=== PATIENT | female | born 1930 | race Caucasian/White ===

== ENCOUNTER 2016-04-10 18:10 | Emergency (ER) | payer OTHER, MEDICARE ==
[~2016-04-10] VITALS: Ht 147.3 cm; Wt 42.6 kg
--- NOTE | 2016-04-10 18:50 | ED DYSPNEA/ASTHMA COMPLAINT ---
History of Present Illness General Chief Complaint: General Adult Stated Complaint: SENT BY [facility] ?FLUID IN LUNGS? Source: patient, family Exam Limitations: no limitations Vital Signs & Intake/Output Vital Signs & Intake/Output Vital Signs Date Time Temp Pulse Resp B/P Pulse O2 O2 Flow FiO2 Ox Delivery Rate 04/101 96 04/10 2030 98.9 75 19 166/87 92 Room Air 04/10 1821 100.7 91 16 154/80 93 Room Air Allergies Coded Allergies: Iodinated Contrast Media - Oral and (ANAPHYLAXIS 04/10/16) Penicillins (RASH - BAD 04/10/16) Sulfa (Sulfonamide Antibiotics) (ANAPHYLAXIS 04/10/16) pneumococcal vaccine (ANAPHYLAXIS 04/10/16) Reconcile Medications Calcium Carbonate (Calcium) 500 MG CALCIUM (1,250 MG) TABLET 2 TAB PO TID PRN GERD (Reported) Dexlansoprazole (Dexilant) 60 MG CAP.BP 1 CAP PO DAILY GERD (Reported) Ferrous Sulfate (IRON) 325 MG (65 MG IRON) TABLET 1 TAB PO DAILY SUPPLEMENT ( Reported) Levothyroxine Sodium 100 MCG TABLET 1 TAB PO DAILY THYROID (Reported) Nebivolol HCl (Bystolic) 5 MG TABLET 15 MG PO DAILY BP (Reported) Vit No.112/Folic Acid (Prenate Chewable Tablet) 1 MG TAB.CHEW 1 TAB PO DAILY SUPPLEMENT (Reported) Triage Note: PT WAS JUST IN ED FOR GI BLEED. PT HAD AN AVM TEAR IN HER COLON AND THAT WAS REPAIRED. PT HAS BEEN WEAK AND THE NURSES WHERE THE PT LIVES FELL LIKE SHE IS GETTING FLUID IN HER LUNGS. Triage Nurses Notes Reviewed? yes HPI: Patient was admitted to [facility] from Tuesday to this past Tuesday. She had a lower GI bleed from an AVM and she required 3 units of blood. The AVM was cauterized. Patient was discharged back to her assisted care facility where she lives with her . Her daughter noticed yesterday that her feet were swollen and she sounded a bit congested. Patient denies any difficulty breathing. There are no fevers or chills. Patient denies any cough. There is no orthopnea. Patient states that she chronically sleeps on 2 pillows at night and she was able to sleep through the night without difficulty last night. The swelling in her feet is improved from where it was yesterday however it is still present. Her daughter became concerned and brought her in for evaluation. Patient denies any chest pain or palpitations. There is no anorexia. There is no nausea or vomiting. Daughter also noticed a bruise just above her left ankle today. Patient has not really been walking so she denies any trauma. Patient denies any pain to the area. (PUNEET HENRY,GONSALO Park) Past History Travel History Traveled to [place] past 21 day No Medical History Any Pertinent Medical History? see below for history Cardiovascular: hyperlipidemia Gastrointestinal: AVM Musculoskeletal: osteoarthritis Blood Disorders: MYELODYSPLASTIC SYNDROME Surgical History Surgical History: non-contributory Psychosocial History What is your primary language Czech Tobacco Use: Never used ETOH Use: denies use Illicit Drug Use: denies illicit drug use Family History Hx Contributory? No (PUNEET HENRY,GONSALO Park) Review of Systems Review of Systems Constitutional: Reports: no symptoms. EENTM: Reports: no symptoms. Respiratory: Reports: see HPI (CONGESTED). Cardiovascular: Reports: no symptoms. GI: Reports: no symptoms. Genitourinary: Reports: no symptoms. Musculoskeletal: Reports: see HPI (FEET SWELLING). Skin: Reports: no symptoms. Neurological/Psychological: Reports: no symptoms. Hematologic/Endocrine: Reports: no symptoms. Immunologic/Allergic: Reports: no symptoms. All Other Systems: Reviewed and Negative (PUNEET HENRY,GONSALO Park) Physical Exam Physical Exam General Appearance: well developed/nourished, alert, awake, mild distress Head: atraumatic, normal appearance Eyes: Bilateral: PERRL, EOMI. Ears, Nose, Throat: normal pharynx, normal ENT inspection, hearing grossly normal Neck: normal inspection, supple, full range of motion, NO JVD Respiratory: normal breath sounds, chest non-tender, no respiratory distress, lungs clear Cardiovascular: regular rate/rhythm, normal peripheral pulses Gastrointestinal: normal bowel sounds, soft, non-tender, no organomegaly Extremities: normal inspection, normal capillary refill, normal range of motion, TRACE EDEMA TO B/L FEET Neurologic/Psych: no motor/sensory deficits, awake, alert, oriented x 3, normal mood/affect Skin: intact, normal color, ECCHYMOSIS ABOVE LEFT ANKLE Lymphatic: no anterior cervical rachael Core Measures ACS in differential dx? No Severe Sepsis Present: No Septic Shock Present: No (GONSALO TEIXEIRA MD) Progress Differential Diagnosis: FLUID OVERLOAD, ELECTRILYTE ABNORMALITY Plan of Care: Orders Procedure Date/time Status AEROSOL (GEN) 04/10 2236 Complete BLOOD CULTURE 04/10 1956 Active URINALYSIS 04/10 1956 Complete PARTIAL THROMBOPLASTIN TIME 04/10 1846 Complete PROTHROMBIN TIME 04/10 1846 Complete COMPREHENSIVE METABOLIC PANEL 04/10 1846 Complete CBC WITHOUT DIFFERENTIAL 04/10 1846 Complete B-TYPE NATRIURETIC PEP (BNP) 04/10 1846 Complete EKG 04/10 1846 Active Laboratory Tests 04/10/163: Urinalysis LIGHT H, Urine Color YEL, Urine Clarity CLEAR, Urine pH 7.0, Ur Specific [place] 1.010, Urine Protein NEG, Urine Ketones NEG, Urine Nitrite NEG, Urine Bilirubin NEG, Urine Urobilinogen 0.2, Ur Leukocyte Esterase SMALL H, Ur Microscopic SEDIMENT EXAMINED, Urine RBC RARE, Urine WBC 3-5 H, Ur Epithelial Cells RARE, Urine Hemoglobin NEG, Urine Glucose NEG 04/10/161899: Anion Gap 6, Estimated GFR > 60, BUN/Creatinine Ratio 17.1, Glucose 83, Calcium 8.0 L, Total Bilirubin 0.6, AST 27, ALT 23, Alkaline Phosphatase 42, Pro-B- Natriuretic Pept 770 H, Total Protein 5.3 L, Albumin 2.9 L, Globulin 2.4, Albumin/Globulin Ratio 1.2, PT 10.9, INR 1.04, APTT 30, CBC w Diff NO MAN DIFF REQ, RBC 2.85 L, MCV 92.6, MCH 30.3, RDW 20.9 H, MPV 6.3 L, Gran % 76.4 H, Lymphocytes % 14.1 L, Monocytes % 8.0, Eosinophils % 1.0, Basophils % 0.5, Absolute Granulocytes 2.9, Absolute Lymphocytes 0.5 L, Absolute Monocytes 0.3, Absolute Eosinophils 0, Absolute Basophils 0, PUBS MCHC 32.7 L Microbiology 04/10 2099 BLOOD: Blood Culture - RECD 04/10 1956 BLOOD: Blood Culture - ORD Initial ED EKG: PENDING Hand-Off Endorsed To: NALDO JOYA MD Endorsed Time: 1899 Pending: EKG, labs, Xray (PUNEET HENRY,GONSALO Park) Diagnostic Imaging: Discussed w/RAD: Radiology Read. Radiology Impression: PATIENT: JOSE HOWE PRESENT AGE: 86 PATIENT ACCOUNT NO: [id number] : [birth year] LOCATION: [facility] ORDERING PHYSICIAN: GONSALO TEIXEIRA MD SERVICE DATE: 04/10/16 EXAM TYPE: RAD - XRY-ANKLE 3 OR MORE VIEWS L EXAMINATION: XR ANKLE, LEFT CLINICAL INFORMATION: Ecchymosis. COMPARISON: None TECHNIQUE: AP, lateral, and mortise views of the left ankle. FINDINGS: No acute fracture. No dislocation. There is an old healed fracture of the distal fibula . There is soft tissue swelling around the ankle. IMPRESSION: Soft tissue swelling around the ankle. No acute osseous abnormality. DICTATED BY: BRITTANY AVELAR MD DATE/TIME DICTATED:04/10/162024 GRIEF COUNSELOR :DARRYL DATE/TIME TRANSCRIBED:04/10/162024 CONFIDENTIAL, DO NOT COPY WITHOUT APPROPRIATE AUTHORIZATION. <Electronically signed in Other Vendor System> SIGNED BY: BRITTANY AVELAR MD 04/10/162028 CXR Impression: PATIENT: JOSE HOWE PRESENT AGE: 86 PATIENT ACCOUNT NO: [id number] : [birth year] LOCATION: [facility] ORDERING PHYSICIAN: GONSALO TEIXEIRA MD SERVICE DATE: 04/10/16 EXAM TYPE: RAD - XRY-CHEST XRAY, PA AND LATERAL EXAMINATION: XR CHEST CLINICAL INFORMATION: Shortness of breath. COMPARISON: None. TECHNIQUE: PA and lateral views of the chest were obtained. FINDINGS: Large hiatal hernia. Lung volume low. No acute change. No infiltrate. Probable small right pleural effusion blunting right posterior costophrenic angle. Dextroscoliosis kyphosis of thoracic spine. IMPRESSION: Large hiatal hernia. Possible small right posterior pleural effusion. DICTATED BY: BRITTANY AVELAR MD DATE/TIME DICTATED:04/10/162014 GRIEF COUNSELOR:DARRYL DATE/TIME TRANSCRIBED:04/10/162014 CONFIDENTIAL, DO NOT COPY WITHOUT APPROPRIATE AUTHORIZATION. <Electronically signed in Other Vendor System> SIGNED BY: BRITTANY AVELAR MD 04/10/162020 Comments: 04/10/2016 7:02:46 PM patient signed out to me by Dr. Teixeira at shift post exchange manager. 04/10/2016 8:55:54 PM I had a rather lengthy discussion with Sonya and her family members regarding the fever, chest congestion, leg swelling, anemia and her generalized weakness. At this point it seems that the patient is suffering from bronchitis, which would explain the low-grade fever chest congestion, deep cough and wheezing (on my reevaluation). I have ordered a urinalysis to rule out urinary tract infection. Plan nebulizer for bronchitis treatment, Lasix and follow-up urinalysis. 04/10/2016 10:58:28 PM I have updated Sonya and her daughter on test results. She feels comfortable going home. She lives with her in a 2 bedroom to bathroom apartment in an assisted living facility. Her daughter will be staying with her this evening. For the bronchitis, I will prescribe an albuterol inhaler and a fall back prescription for an antibiotic. For the leg swelling a brief course of Lasix and potassium. (JAKI HENRY,NALDO Bonner) Departure Departure Condition: Stable Departure Forms: Customer Survey General Discharge Information (PUNEET HENRY,GONSALO Park) Departure Disposition: HOME OR SELF CARE Clinical Impression Primary Impression: Bronchitis Secondary Impressions: Ankle bruise Qualifiers: Encounter type: initial encounter Laterality: left Qualified Code: S90.02XA - Contusion of left ankle, initial encounter Peripheral edema Additional Instructions: Albuterol inhaler as needed for wheezing or cough. Lasix as prescribed to help with the leg swelling. Potassium as prescribed to avoid a low potassium level given the medications. If you're fever worsens or if your phlegm turns yellow or green than activate the azithromycin prescription. Follow-up with your primary care doctor on Tuesday for reevaluation. Return if any concerns or sudden worsening. Please note that there might be incidental findings in your evaluation that are unrelated to the current emergency department visit. Please notify your primary care doctor about this emergency department visit in order to obtain and review all of the testing performed so that these incidental findings can be monitored as needed. If you had an x-ray performed, please understand that some fractures may not be seen on the initial set of x-rays. If your symptoms persist you might need a repeat set of x-rays to check for such a fracture. If you had a laceration evaluated, please understand that foreign bodies such as glass or wood may not be visible to the naked eye or on plain x-rays. If the wound becomes red, swollen, increasingly more painful or if there is any drainage from the wound, please have it reevaluated by a physician for the possibility of a retained foreign body. Thank you for choosing the Emergency Department for your care. It was a pleasure to serve you today. Naldo Joya M.D. [facility] Prescriptions: Current Visit Scripts Albuterol Sulfate (Proair Hfa) 2-4 INH INH Q6P PRN ASTHMA #1 INHAL Furosemide (Lasix) 1 TAB PO DAILY #2 TAB Potassium Chloride (Klor-Con M10) 1 TAB PO DAILY #4 TAB Azithromycin (Zithromax) 1 DP PO AD #6 TAB 2 the first day followed by 1 for days 2-5 (JAKI HENRY,NALDO Bonner) Critical Care Note Critical Care Note Critical Care Time: non-applicable (PUNEET HENRY,GONSALO Park)
[2016-04-10 19:14] LABS: ABSOLUTE BASOPHIL COUNT 0 /CUMM (0.0-0.2); ABSOLUTE EOSINOPHIL COUNT 0 /CUMM (0.0-0.7)
[2016-04-10 19:18] LABS: ABSOLUTE GRANULOCYTE CT 2.9 /CUMM (1.4-6.5); ABSOLUTE LYMPH COUNT 0.5 /CUMM (1.2-3.4); ABSOLUTE MONOCYTE COUNT 0.3 /CUMM (0.10-0.60); BASOPHIL % 0.5 % (0.0-2.0); GRANULOCYTE % 76.4 % (42.2-75.2); HEMATOCRIT 26.4 % (37-47); MEAN CORPUSCULAR HGB 30.3 PG (27.0-31.0); MEAN CORPUSCULAR HGB CONC 32.7 G/DL (33.0-37.0); MEAN CORPUSCULAR VOLUME 92.6 FL (81.0-99.0); MEAN PLATELET VOLUME 6.3 FL (7.4-10.4); PLATELET COUNT 217 /CUMM (130-400); RBC DISTRIBUTION WIDTH 20.9 % (11.5-14.5); RED BLOOD CELL CT 2.85 /CUMM (4.20-5.40); WHITE BLOOD CELL COUNT 3.8 /CUMM (4.8-10.8)
[2016-04-10 19:28] LABS: PT 10.9 SEC (9.4-12.5); PTT 30 SEC (25-37)
[2016-04-10] MEDS ORDERED: DEXILANT60 M1 PO (19:41)
[2016-04-10] MEDS ORDERED: LEVOTHYROXINE100 MC1 PO (19:42)
[2016-04-10] MEDS ORDERED: BYSTOLIC5 M1 PO (19:42)
[2016-04-10] MEDS ORDERED: [UNRECOGNIZED DRUG - OTHER] PO (19:43)
[2016-04-10] MEDS ORDERED: CALCIUM500 M1 PO (19:43)
[2016-04-10] MEDS ORDERED: IRON325 M3 PO (19:45)
[2016-04-10] MEDS ORDERED: PRENATE CHEWABLE1 MG PO (19:45)
--- NOTE | 2016-04-10 20:21 | RADIOLOGY REPORT ---
EXAMINATION: XR CHEST CLINICAL INFORMATION: Shortness of breath. COMPARISON: None. TECHNIQUE: PA and lateral views of the chest were obtained. FINDINGS: Large hiatal hernia. Lung volume low. No acute change. No infiltrate. Probable small right pleural effusion blunting right posterior costophrenic angle. Dextroscoliosis kyphosis of thoracic spine. IMPRESSION: Large hiatal hernia. Possible small right posterior pleural effusion.
--- NOTE | 2016-04-10 20:29 | RADIOLOGY REPORT ---
EXAMINATION: XR ANKLE, LEFT CLINICAL INFORMATION: Ecchymosis. COMPARISON: None TECHNIQUE: AP, lateral, and mortise views of the left ankle. FINDINGS: No acute fracture. No dislocation. There is an old healed fracture of the distal fibula . There is soft tissue swelling around the ankle. IMPRESSION: Soft tissue swelling around the ankle. No acute osseous abnormality.
[2016-04-10 20:31] VITALS: BP 166/87
[2016-04-10] MEDS ORDERED: ZITHROMAX250 M2 PO (23:04)
[2016-04-10] MEDS ORDERED: KLOR-CON M1010 ME1 PO (23:04)
[2016-04-10] MEDS ORDERED: LASIX20 M1 PO (23:04)
[2016-04-10] MEDS ORDERED: PROAIR HFA8.5 GM INH (23:04)
== END 2016-04-10 23:09 ==
LOC: ERH 18:10
PROVIDERS: Emergency Medicine
DX: S90.02XA Contusion of left ankle, initial encounter (principal); J40 Bronchitis, not specified as acute or chronic; R60.9 Edema, unspecified; X58.XXXA Exposure to other specified factors, initial encounter
CPT/HCPCS: 1263; 73610-LT; 81001; 87040; 93005; 93010; 96374; J1940

== ENCOUNTER 2017-04-03 13:08 | Emergency (ER) | payer OTHER, MEDICARE ==
[~2017-04-03] VITALS: Ht 147.3 cm; Wt 48.1 kg
[~2017-04-03 13:08] MED LIST: BYSTOLIC5 M1 PO; CALCIUM500 M1 PO; DEXILANT60 M1 PO; IRON325 M3 PO; KLOR-CON M1010 ME1 PO; LASIX20 M1 PO; LEVOTHYROXINE100 MC1 PO; PRENATE CHEWABLE1 MG PO; PROAIR HFA8.5 GM INH; ZITHROMAX250 M2 PO; [UNRECOGNIZED DRUG - OTHER] PO
--- NOTE | 2017-04-03 13:13 | ED CARDIAC/CP/PALPITATIONS ---
History of Present Illness General Chief Complaint: Chest Pain Stated Complaint: BIBA CC/O L SIDED CHEST PAIN Source: patient, family, old records, EMS Exam Limitations: no limitations Vital Signs & Intake/Output Vital Signs & Intake/Output Vital Signs Date Time Temp Pulse Resp B/P B/P Pulse O2 O2 Flow FiO2 Mean Ox Delivery Rate 04/03 1519 97.2 69 18 164/72 97 Room Air 04/03 1351 99 Nasal 2.0L Cannula 04/03 1327 96.8 64 18 156/75 99 Nasal 2.0L Cannula Allergies Coded Allergies: Iodinated Contrast- Oral and IV Dye (IODINATED CONTRAST MEDIA - ORAL AND) ( ANAPHYLAXIS 04/10/16) Penicillins (RASH - BAD 04/10/16) Sulfa (Sulfonamide Antibiotics) (ANAPHYLAXIS 04/10/16) pneumococcal vaccine (ANAPHYLAXIS 04/10/16) Reconcile Medications Calcium Carbonate (Calcium) (Unknown Strength) TABLET (Unknown Dose) PO PRN GERD (Reported) Cholecalciferol (Vitamin D3) (Vitamin D) 2,000 UNIT TABLET 1 TAB PO DAILY SUPPLEMENT (Reported) Cyanocobalamin (Vitamin B-12) 1,000 MCG TABLET 3 TAB PO DAILY SUPPLEMENT ( Reported) Dexlansoprazole (Dexilant) 60 MG CAP.DR.BP 1 CAP PO DAILY GERD (Reported) Furosemide (Lasix) 20 MG TABLET 1 TAB PO DAILY DIURETIC (Reported) Levothyroxine Sodium (Levo-T) 125 MCG TABLET 1 TAB PO DAILY THYROID (Reported ) Multivit-Min/FA/Lycopen/Lutein (Centrum Silver Tablet) 0.4 MG-300 MCG-250 MCG TABLET 1 TAB PO DAILY SUPPLEMENT (Reported) Nebivolol HCl (Bystolic) 5 MG TABLET 15 MG PO DAILY BP (Reported) Potassium Chloride (Unknown Strength) TAB.ER.PRT (Unknown Dose) PO DAILY SUPPLEMENT (Reported) Triage Nurses Notes Reviewed? yes Onset: Abrupt Duration: hour(s): (several) Timing: single episode today Location: LEFT CHEST Radiation: AROUND RIBS Activities at Onset: rest Aspirin Today: no aspirin today HPI: This is an 87-year-old female with history of pulmonary hypertension, aortic stenosis, hypertension, hypothyroidism who presents by EMS from home for chief complaint of left-sided chest pain which she noticed upon awakening this morning. It is left-sided and wraps around her ribs. No trauma. No fever chills or cough. She is chronically on oxygen between 2-3 Liters. She is chronically short of breath and denies any additional shortness of breath. Pain is worse with deep inspiration and she reports that it is "hurtful". No history of coronary disease or previous [place]. Patient also has a known diagnosis of hiatal hernia and significant kyphosis which makes it difficult for her to breathe. 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 Benito for cardiology. Patient lives in an assisted living with her and is coming in today by her daughter. She did not take any of her regular medications this morning. Past History Travel History Traveled to [place] past 21 day No Medical History Any Pertinent Medical History? see below for history Cardiovascular: hyperlipidemia Gastrointestinal: AVM Musculoskeletal: osteoarthritis Blood Disorders: MYELODYSPLASTIC SYNDROME Surgical History Surgical History: non-contributory Psychosocial History What is your primary language [place] Citizen Family History Hx Contributory? No Review of Systems Review of Systems Constitutional: Denies: chills, fever. EENTM: Reports: no symptoms. Respiratory: Reports: short of breath (CHRONIC). Denies: cough, sputum production. Cardiovascular: Reports: chest pain. Denies: palpitations, peripheral edema, syncope. GI: Denies: abdominal pain. Genitourinary: Reports: no symptoms. Musculoskeletal: Reports: no symptoms. Skin: Reports: no symptoms. Neurological/Psychological: Reports: no symptoms. Hematologic/Endocrine: Denies: bruising, bleeding, polyuria, polydipsia. Immunologic/Allergic: Denies: splenectomy. All Other Systems: Reviewed and Negative Physical Exam Physical Exam General Appearance: alert, awake, cachetic, mild distress, intoxicated Head: atraumatic, normal appearance Eyes: Bilateral: normal appearance, PERRL, EOMI. Ears, Nose, Throat: normal pharynx, hearing grossly normal Neck: normal inspection, supple, full range of motion Respiratory: normal breath sounds, chest non-tender, no respiratory distress Cardiovascular: regular rate/rhythm Peripheral Pulses: 2+ radial (R), 2+ radial (L) Gastrointestinal: normal bowel sounds, soft, non-tender Back: normal inspection, normal range of motion Extremities: normal inspection, normal capillary refill, normal range of motion, no edema Core Measures ACS in differential dx? Yes CVA/TIA Diagnosis No Sepsis Present: No Sepsis Focused Exam Completed? No Progress Differential Diagnosis: AMI, aortic dissection, myocarditis, pericarditis, pneumonia, pneumothorax, unstable angina Plan of Care: Orders Procedure Date/time Status Heart Healthy Diet 04/03 D Active Add-on Test (ER Only) 04/03 1801 Active TROPONIN LEVEL 04/03 1700 Complete EKG 04/03 1700 Active Telemetry/Backup Sawyer 04/03 1325 Active TROPONIN LEVEL 04/03 1325 Complete PARTIAL THROMBOPLASTIN TIME 04/03 1325 Complete PROTHROMBIN TIME 04/03 1325 Complete COMPREHENSIVE METABOLIC PANEL 04/03 1325 Complete CBC WITHOUT DIFFERENTIAL 04/03 1325 Complete EKG 04/03 1309 Active Current Medications Sig/David Start time Last Medication Dose Stop Time Status Admin Acetaminophen 975 MG ONCE ONE 04/03 1800 UNVr (Tylenol) 04/03 1801 Laboratory Tests 04/03/17 1708: Troponin I < 0.01 04/03/17 1355: Anion Gap 12, Estimated GFR > 60, BUN/Creatinine Ratio 18.8, Glucose 87, Calcium 9.7, Total Bilirubin 0.6, AST 33, ALT 37, Alkaline Phosphatase 41, Troponin I < 0.01, Total Protein 8.2, Albumin 4.7, Globulin 3.5, Albumin/Globulin Ratio 1.3, PT 10.6, INR 1.01, APTT 34, CBC w Diff NO MAN DIFF REQ, RBC 3.96 L, MCV 94.7, MCH 31.4 H, RDW 13.4, MPV 6.9 L, Gran % 70.8, Lymphocytes % 17.9 L, Monocytes % 9.4 H, Eosinophils % 1.4, Basophils % 0.5, Absolute Granulocytes 3.0, Absolute Lymphocytes 0.8 L, Absolute Monocytes 0.4, Absolute Eosinophils 0.1, Absolute Basophils 0, PUBS MCHC 33.2 5:40 PM PATIENT COMFORTABLE, ATE MEAL. IMPROVED PAIN AFTER ASPIRIN. NOT TACHYCARDIC. PENDING SECOND TROPONIN RESULT. REPEAT TROPONIN NEGATIVE. PATIETN ALLERGIC TO IV CONTRAST, UNWILLING TO STAY OVERNIGHT FOR AM V/Q SCAN. D/W DAUGHTER AND PATIENT AT LENGTH AND SHE WILL FOLLOW UP WITH PCP IN OFFICE OR RETURN IF WORSE. D-DIMER ADDED ONTO BLOOD WORK. STATES NO PAIN OR SHORTNESS OF BREATH ON DISCHARGE. AMBULATORY IN THE ED WITHOUT DISTRESS. Diagnostic Imaging: Viewed by Me: Radiology Read, CT Scan. Discussed w/RAD: Radiology Read, CT Scan. Radiology Impression: PATIENT: JOSE HOWE PRESENT AGE: 87 PATIENT ACCOUNT NO: [id number] : [birth year] LOCATION: [facility] ORDERING PHYSICIAN: Brisa Fang MD SERVICE DATE: 04/03/17-1554 EXAM TYPE: CAT - CT CHEST WO IV CONTRAST EXAMINATION: CT CHEST WITHOUT CONTRAST CLINICAL INFORMATION : Left-sided rib pain with movement. Question fracture. COMPARISON: Same day chest x-ray TECHNIQUE: Multidetector volumetric CT imaging of the chest was done. Axial MIP volume rendering provided. Sagittal and coronal reformatted images were obtained. DLP: 303 mGy-cm FINDINGS: SEEING EYE DOG TRAINER: Chronic intrathoracic herniation of the stomach. LUNGS: Intrathoracic herniation of the stomach dominates the left lower lobe with associated atelectasis. The left upper lung and superior segment of the left lower lobe appear clear. Aside from linear areas of atelectasis at the right lung bases and within the right middle lobe the right lung appears clear. There is mild diffuse mosaic ventilation. MEDIASTINUM: Intrathoracic herniation of the stomach. Air-fluid level present at the level of the expected location of the gastroesophageal junction. Scattered mediastinal lymph nodes measure up to 1 cm in short axis. Diffuse atherosclerotic calcific disease present at the level of the aortic arch. Moderate to significant coronary artery calcification. PLEURA: There is no pleural effusion. No pleural mass or thickening. AXILLA: No lymphadenopathy. UPPER ABDOMEN: Grossly unremarkable. Dense stool noted within the colon. Status post cholecystectomy. OSSEOUS STRUCTURES: Diffuse osteopenia somewhat limits evaluation. No definite rib fracture demonstrated. Severe compression deformities of the T7 and T8 vertebral bodies with at least 50% loss in height. An additional compression deformity involving the T10 vertebral body with approximately 30% loss in height isn't demonstrated as well. Superior endplate deformity of the T12 vertebral body is evident. This results in approximate 30% loss in height. Multilevel diffuse rim changes involving the mid to lower thoracic spine are noted. Prominent spinal kyphosis. IMPRESSION: 1. No definite rib fracture identified. Diffuse osteopenia. Kyphosis. Multiple thoracic compression fractures worst at the T7 and T8 levels. Consider referral for kyphoplasty. 2. Intrathoracic herniation of the stomach. This results in associated atelectasis of the left lower lobe. Bibasilar atelectasis. 3. Moderately severe coronary artery calcification. DICTATED BY: Kati Chávez MD DATE/TIME DICTATED:04/03/171456 SENIOR BIOSTATISTICIAN/GROUP LEADER:DARRYL DATE/TIME TRANSCRIBED:04/03/171456 CONFIDENTIAL, DO NOT COPY WITHOUT APPROPRIATE AUTHORIZATION. <Electronically signed in Other Vendor System> SIGNED BY: Kati Chávez MD 04/03/17 1518 CXR Impression: PATIENT: JOSE HOWE PRESENT AGE: 87 PATIENT ACCOUNT NO: [id number] : [birth year] LOCATION: [facility] ORDERING PHYSICIAN: Brisa Fang MD SERVICE DATE: 04/03/17 EXAM TYPE: RAD - XRY-PORTABLE CHEST XRAY EXAMINATION: XR PORTABLE CHEST CLINICAL INFORMATION: Left-sided chest pain. COMPARISON: 04/10/2016 TECHNIQUE: Portable frontal view of the chest was obtained. FINDINGS: Patient's chin overlies the medial lung apices. The gas- filled viscus within the chest appears to represent the stomach. There is mild atelectasis within the left perihilar region. The retrocardiac region of left lower lobe is suboptimally evaluated. Atelectasis is suspected in the left lower lobe. Cardiac silhouette appears normal in size. Aortic arch is uncoiled. Bone density is diffusely decreased and an old healed fracture of one of the right superolateral ribs is noted. The hyperkyphotic, degenerated thoracic spine is suboptimally visualized. IMPRESSION: 1. Chronic intrathoracic herniation of the stomach. 2. Probable atelectasis in the left midlung and left lower lobe around the large hernia. 3. No evidence of pulmonary edema, pleural effusion or other acute abnormality compared to 04/10/2016. DICTATED BY: Isaiah Ornelas MD DATE/ TIME DICTATED:04/03/171423 SENIOR BIOSTATISTICIAN/GROUP LEADER:DARRYL DATE/TIME TRANSCRIBED: 04/03/171423 CONFIDENTIAL, DO NOT COPY WITHOUT APPROPRIATE AUTHORIZATION. < Electronically signed in Other Vendor System> SIGNED BY: Isaiah Ornelas MD 04/03/17 1432 Initial ED EKG: NSR, PVC, PAC Repeat EKG: unchanged Departure Departure Time of Disposition: 1801 Disposition: HOME OR SELF CARE Condition: Stable Clinical Impression Primary Impression: Chest pain Referrals: Mami Weber MD (PCP/Family) Additional Instructions: Take Tylenol as needed for pain. Please follow up with your primary care doctor in the office tomorrow to discuss results and the possibility of nuclear medicine test to rule out a blood clot in your lungs. Return to the ER for any worsening pain, shortness of breath, elevated heart rate. Departure Forms: Customer Survey General Discharge Information Critical Care Note Critical Care Note Critical Care Time: non-applicable
[2017-04-03 14:04] LABS: ABSOLUTE BASOPHIL COUNT 0 /CUMM (0.0-0.2); ABSOLUTE EOSINOPHIL COUNT 0.1 /CUMM (0.0-0.7); ABSOLUTE LYMPH COUNT 0.8 /CUMM (1.2-3.4); ABSOLUTE MONOCYTE COUNT 0.4 /CUMM (0.10-0.60); BASOPHIL % 0.5 % (0.0-2.0); EOSINOPHIL % 1.4 % (0-5); GRANULOCYTE % 70.8 % (42.2-75.2); HEMATOCRIT 37.5 % (37-47); MEAN CORPUSCULAR HGB 31.4 PG (27.0-31.0); MEAN CORPUSCULAR HGB CONC 33.2 G/DL (33.0-37.0); MEAN CORPUSCULAR VOLUME 94.7 FL (81.0-99.0); MEAN PLATELET VOLUME 6.9 FL (7.4-10.4); PLATELET COUNT 269 /CUMM (130-400); RBC DISTRIBUTION WIDTH 13.4 % (11.5-14.5); RED BLOOD CELL CT 3.96 /CUMM (4.20-5.40); WHITE BLOOD CELL COUNT 4.3 /CUMM (4.8-10.8)
[2017-04-03 14:14] LABS: PT 10.6 SEC (9.4-12.5); PTT 34 SEC (25-37)
--- NOTE | 2017-04-03 14:32 | RADIOLOGY REPORT ---
EXAMINATION: XR PORTABLE CHEST CLINICAL INFORMATION: Left-sided chest pain. COMPARISON: 04/10/2016 TECHNIQUE: Portable frontal view of the chest was obtained. FINDINGS: Patient's chin overlies the medial lung apices. The gas-filled viscus within the chest appears to represent the stomach. There is mild atelectasis within the left perihilar region. The retrocardiac region of left lower lobe is suboptimally evaluated. Atelectasis is suspected in the left lower lobe. Cardiac silhouette appears normal in size. Aortic arch is uncoiled. Bone density is diffusely decreased and an old healed fracture of one of the right superolateral ribs is noted. The hyperkyphotic, degenerated thoracic spine is suboptimally visualized. IMPRESSION: 1. Chronic intrathoracic herniation of the stomach. 2. Probable atelectasis in the left midlung and left lower lobe around the large hernia. 3. No evidence of pulmonary edema, pleural effusion or other acute abnormality compared to 04/10/2016.
[2017-04-03] MEDS ORDERED: LEVO-T125 MCG PO (14:54)
[2017-04-03] MEDS ORDERED: CENTRUM SILVER1 EAC3 PO (14:55)
[2017-04-03] MEDS ORDERED: LASIX20 M1 PO (14:55)
[2017-04-03] MEDS ORDERED: POTASSIUM CHLO10 ME5 PO (14:55)
[2017-04-03] MEDS ORDERED: VITAMIN D2000 UNI1 PO (14:56)
[2017-04-03] MEDS ORDERED: VITAMIN B-121000 MC3 PO (14:56)
--- NOTE | 2017-04-03 15:18 | CT SCAN REPORT ---
EXAMINATION: CT CHEST WITHOUT CONTRAST CLINICAL INFORMATION: Left-sided rib pain with movement. Question fracture. COMPARISON: Same day chest x-ray TECHNIQUE: Multidetector volumetric CT imaging of the chest was done. Axial MIP volume rendering provided. Sagittal and coronal reformatted images were obtained. DLP: 303 mGy-cm FINDINGS: LAY BROTHER: Chronic intrathoracic herniation of the stomach. LUNGS: Intrathoracic herniation of the stomach dominates the left lower lobe with associated atelectasis. The left upper lung and superior segment of the left lower lobe appear clear. Aside from linear areas of atelectasis at the right lung bases and within the right middle lobe the right lung appears clear. There is mild diffuse mosaic ventilation. MEDIASTINUM: Intrathoracic herniation of the stomach. Air-fluid level present at the level of the expected location of the gastroesophageal junction. Scattered mediastinal lymph nodes measure up to 1 cm in short axis. Diffuse atherosclerotic calcific disease present at the level of the aortic arch. Moderate to significant coronary artery calcification. PLEURA: There is no pleural effusion. No pleural mass or thickening. AXILLA: No lymphadenopathy. UPPER ABDOMEN: Grossly unremarkable. Dense stool noted within the colon. Status post cholecystectomy. OSSEOUS STRUCTURES: Diffuse osteopenia somewhat limits evaluation. No definite rib fracture demonstrated. Severe compression deformities of the T7 and T8 vertebral bodies with at least 50% loss in height. An additional compression deformity involving the T10 vertebral body with approximately 30% loss in height isn't demonstrated as well. Superior endplate deformity of the T12 vertebral body is evident. This results in approximate 30% loss in height. Multilevel diffuse rim changes involving the mid to lower thoracic spine are noted. Prominent spinal kyphosis. IMPRESSION: 1. No definite rib fracture identified. Diffuse osteopenia. Kyphosis. Multiple thoracic compression fractures worst at the T7 and T8 levels. Consider referral for kyphoplasty. 2. Intrathoracic herniation of the stomach. This results in associated atelectasis of the left lower lobe. Bibasilar atelectasis. 3. Moderately severe coronary artery calcification.
[2017-04-03 18:18] VITALS: BP 160/88
== END 2017-04-03 18:27 ==
LOC: ERH 13:08
PROVIDERS: Emergency Medicine
DX: R07.9 Chest pain, unspecified (principal)
CPT/HCPCS: 71045; 93005; 93010